=== PATIENT | male | born 1990 | race Caucasian/White ===

== ENCOUNTER 2017-01-02 08:39 | Emergency (ER) | payer SELFPAY | END 2017-01-02 16:18 | disposition home or self-care (01) | DX: F43.21 Adjustment disorder with depressed mood (principal); F10.129 Alcohol abuse with intoxication, unspecified; Y90.7 Blood alcohol level of 200-239 mg/100 ml; S50.812A Abrasion of left forearm, initial encounter; X78.8XXA Intentional self-harm by other sharp object, initial encounter; R03.0 Elevated blood-pressure reading, without diagnosis of hypertension ==

== ENCOUNTER 2017-01-28 16:36 | Emergency (ER) | payer MEDICAID | END 2017-01-28 18:11 | disposition home or self-care (01) | DX: F32.9 Major depressive disorder, single episode, unspecified (principal); R45.851 Suicidal ideations; R03.0 Elevated blood-pressure reading, without diagnosis of hypertension ==

== ENCOUNTER 2019-04-01 13:41 | Emergency (ER) | payer MEDICAID ==
[2019-04-01 14:06] VITALS: BP 135/77
[2019-04-01] MEDS ORDERED: HYDROcod/ACETAM 5/325 MG TABLET PO STA (14:54)
[2019-04-01] MEDS ORDERED: TETANUS/DIPHTHERIA/PERTUSSIS 0.5 ML SYRINGE IM ONE (14:54)
[2019-04-01] MEDS ORDERED: CIPROFLOXACIN 250 MG TABLET PO STA (14:54)
--- NOTE | 2019-04-01 14:55 | ED Physician Documentation ---
PD HPI LOWER EXT INJURY - Stated complaint Stated Complaint: LEFT FOOT LAC - Chief complaint Chief Complaint: Trauma Ext - History obtained from History obtained from: Patient - History of Present Illness PD HPI LOW EXT INJURY LOCATION: Left (He stepped on 2 nails out of a board today through shoes and has intermittent severe pain near the fourth metatarsal head on the plantar surface. Tetanus needs updating.) Review of Systems Constitutional: reports: Reviewed and negative Throat: reports: Reviewed and negative Cardiac: reports: Chest pain / pressure PD PAST MEDICAL HISTORY - Past Medical History Cardiovascular: None Respiratory: None Endocrine/Autoimmune: None GI: None - Past Surgical History Past Surgical History: No - Present Medications Home Medications: Ambulatory Orders Medication Instructions Recorded Confirmed Ciprofloxacin HCl [Cipro] 500 mg PO BID #10 tablet 04/01/19 Hydrocodone/Acetaminophen 1 - 2 each PO Q6H PRN #7 tablet 04/01/19 [Hydrocodon-Acetaminophen 5-325] - Allergies Allergies/Adverse Reactions: Allergies Allergy/AdvReac Type Severity Reaction Status Date / Time No Known Drug Allergies Allergy Verified 04/01/19 14:06 - Social History Does the pt smoke?: No Smoking Status: Never smoker Does the pt drink ETOH?: Yes Does the pt have substance abuse?: No - Immunizations Immunizations are current?: Yes PD ED PE NORMAL - Vitals Vital signs reviewed: Yes - General General: Alert and oriented X 3, No acute distress - Extremities Extremities: Other (No dorsal foot tenderness. He has 2 puncture wounds, one near the first metatarsal head and one near the fourth metatarsal head. The one under the fourth metatarsal head is severely tender and has significant pain with dorsiflexion of the fourth toe.) - Neuro Neuro: Alert and oriented X 3, Normal speech Results - Vitals Vitals: Vital Signs - 24 hr 04/01/19 14:01 Temperature 36.8 C Heart Rate 93 Respiratory 14 Rate Blood Pressure 135/77 H O2 Saturation 99 Oxygen O2 Source Room air Departure - Departure Disposition: 01 Home, Self Care Clinical Impression: Puncture wound of plantar aspect of foot Qualifiers: Encounter type: initial encounter Laterality: left Qualified Code(s): S91.332A - Puncture wound without foreign body, left foot, initial encounter Condition: Good Record reviewed to determine appropriate education?: Yes Instructions: ED Wound Puncture General Prescriptions: Ciprofloxacin HCl [Cipro] 500 mg PO BID #10 tablet Hydrocodone/Acetaminophen [Hydrocodon-Acetaminophen 5-325] 1 - 2 each PO Q6H PRN #7 tablet PRN Reason: pain
--- NOTE | 2019-04-01 15:44 | XRAY Report ---
Reason: plantar puncture wound, focus 4th MT Procedure Date: 04/01/2019 Accession Number: [id number] / [id number] Procedure: XR - Foot 3 View LT CPT Code: FULL RESULT: EXAM: LEFT FOOT RADIOGRAPHY EXAM DATE: 04/01/2019 03:32 PM. CLINICAL HISTORY: Plantar puncture wound, focus 4th MT. Stepped on a board with nails. COMPARISON: None. TECHNIQUE: 3 views. FINDINGS: Bones: Normal. No fractures or bone lesions. Joints: Normal. No subluxations. Soft Tissues: No focal soft tissue swelling, soft tissue gas, or radiopaque foreign body. IMPRESSION: Normal foot radiography. No acute osseous abnormality. No radiopaque foreign body. [facility]
== END 2019-04-01 16:00 | disposition home or self-care (01) ==
LOC: ED 13:41
DX: S91.332A Puncture wound without foreign body, left foot, initial encounter (principal); W45.0XXA Nail entering through skin, initial encounter; W22.8XXA Striking against or struck by other objects, initial encounter; Z23 Encounter for immunization
CPT/HCPCS: 73630; 90471; 90715; 99283; A9270

== ENCOUNTER 2019-10-12 08:00 | Outpatient (CLI) | payer MEDICAID ==
[2019-10-12 13:11] LABS: H. PYLORIS ANTIGEN STL NEGATIVE (Negative)
== END 2019-10-12 23:59 | disposition home or self-care (01) ==
LOC: LAB.R 08:00
PROVIDERS: ATTEND Family Medicine
DX: R10.9 Unspecified abdominal pain (principal)
CPT/HCPCS: 87338

== ENCOUNTER 2020-10-09 14:40 | Outpatient (CLI) | payer MEDICAID ==
--- NOTE | 2020-10-09 16:21 | XRAY Report ---
PROCEDURE: Knee 3 View RT INDICATIONS: PAIN IN RIGHT KNEE TECHNIQUE: 3 views of the right knee(s) were acquired. COMPARISON: None. FINDINGS: Bones: There is no fracture or dislocation. Normal patellar height and position. Joint space is maint ained. Soft tissues: Moderate sized suprapatellar joint effusion. No suspicious soft tissue calcifications. IMPRESSION: Moderate sized suprapatellar knee joint effusion. No acute finding otherwise. Reviewed by: Miles Mai MD on 10/09/2020 3:20 PM [facility] Approved by: Miles Mai MD on 10/09/2020 3:20 PM [facility] Station ID: [id number]
== END 2020-10-09 23:59 | disposition home or self-care (01) ==
LOC: DI.S 14:40
PROVIDERS: ATTEND Nurse Practitioner
DX: M25.461 Effusion, right knee (principal)

== ENCOUNTER 2021-06-11 08:00 | Outpatient (CLI) | payer MEDICAID ==
--- NOTE | 2021-06-11 15:33 | XRAY Report ---
PROCEDURE: Ankle 3 View LT INDICATIONS: PAIN IN LEFT ANKLE TECHNIQUE: 3 views of the ankle were acquired. COMPARISON: None FINDINGS: Bones: No fractures or dislocations. Ankle mortise is normally aligned. No suspicious bony lesions . Soft tissues: No tibiotalar joint effusion. Achilles tendon appears normal. IMPRESSION: Unremarkable radiographic examination of left ankle. Reviewed by: Elton Pérez MD on 06/11/2021 3:32 PM PDT Approved by: Elton Pérez MD on 06/11/2021 3:32 PM PDT Station ID: [id number]
--- NOTE | 2021-06-11 16:49 | XRAY Report ---
PROCEDURE: Foot 3 View LT INDICATIONS: PAIN IN LEFT FOOT TECHNIQUE: 3 views of the foot were acquired. COMPARISON: None FINDINGS: Bones: No fractures or dislocations. No suspicious bony lesions. Soft tissues: No tibiotalar joint effusion. Achilles tendon appears normal. IMPRESSION: No fracture. No osseous lesion. If there is continued clinical concern for pathology, then advanced i maging (CT, MRI, bone scan) should be considered for further evaluation. Reviewed by: SAM Whitaker on 06/11/2021 4:48 PM PDT Approved by: Dewey Wilson on 06/11/2021 4:48 PM PDT Station ID: [id number]
== END 2021-06-11 23:59 | disposition home or self-care (01) ==
LOC: DI.S 08:00
PROVIDERS: ATTEND Physician Assistant
DX: M25.572 Pain in left ankle and joints of left foot (principal); M79.672 Pain in left foot

== ENCOUNTER 2021-10-04 08:00 | Outpatient (CLI) | payer MEDICAID ==
--- NOTE | 2021-10-04 12:39 | XRAY Report ---
PROCEDURE: Ribs w/PA Chest RT INDICATIONS: RIB PAIN, RIGHT SIDED TECHNIQUE: 3 views of the right ribs were acquired, along with a single view chest. COMPARISON: None. FINDINGS: Surgical changes and devices: None. Bones and chest wall: No fractures or dislocations. No suspicious bony lesions. Overlying soft tis sues appear unremarkable. Lungs and pleura: No pleural effusions or pneumothorax. Lungs appear clear. Mediastinum: Mediastinal contours appear normal. Heart size is normal. IMPRESSION: No significant abnormality. Reviewed by: [place] Taveras MD on 10/04/2021 12:37 PM [facility] Approved by: Los Taveras MD on 10/04/2021 12:37 PM [facility] Station ID: [id number]
== END 2021-10-04 23:59 | disposition home or self-care (01) ==
LOC: DI.S 08:00
PROVIDERS: ATTEND Physician Assistant Medical
DX: R07.81 Pleurodynia (principal)

== ENCOUNTER 2024-04-18 07:27 | Outpatient (CLI) | payer MEDICAID ==
[2024-04-18 15:21] LABS: BASOPHILS # (AUTO) 0.1 10^3/uL (0.0-0.1); BASOPHILS % (AUTO) 1.2 %; EOSINOPHILS # (AUTO) 0.5 10^3/uL (0.0-0.7); EOSINOPHILS % (AUTO) 8.5 %; HCT - HEMATOCRIT 46.6 % (42.0-52.0); HGB - HEMOGLOBIN 15.5 g/dL (14.0-18.0); LYMPHOCYTES % (AUTO) 33.8 %; MEAN CORPUSCULAR HEMOGLOBIN 30.3 pg (27.0-31.0); MEAN CORPUSCULAR HGB CONC 33.3 g/dL (32.0-36.0); MEAN CORPUSCULAR VOLUME 91.2 fL (80.0-94.0); MONOCYTES # (AUTO) 0.7 10^3/uL (0.0-1.0); MONOCYTES % (AUTO) 12.2 %; NEUTROPHILS # (AUTO) 2.6 10^3/uL (1.5-6.6); NEUTROPHILS % (AUTO) 44.1 %; PLT - PLATELET COUNT 290 10^3/uL (130-450); RED BLOOD COUNT 5.11 10^6/uL (4.70-6.10); RED CELL DISTRIBUTION WIDTH 11.8 % (12.0-15.0); WHITE BLOOD COUNT 5.9 x10^3/uL (4.8-10.8)
== END 2024-04-18 07:28 | disposition home or self-care (01) ==
LOC: LAB.S 07:27
PROVIDERS: ATTEND Physician Assistant Medical
DX: I73.00 Raynaud's syndrome without gangrene (principal)
CPT/HCPCS: 36415; 85025; 85651; 86038; 86140